=== PATIENT | male | born 1965 | race Caucasian/White ===

== ENCOUNTER 2018-04-17 10:47 | Outpatient (CLI) | payer OTHER ==
[2018-04-17] MEDS ORDERED: fentaNYL 100 MCG/2 ML INJ IVP PRN (12:05)
[2018-04-17] MEDS ORDERED: NALOXONE HCL 0.4 MG/ML INJ IVP PRN (12:05)
[2018-04-17] MEDS ORDERED: FLUMAZENIL 0.5 MG/5 ML MDV IVP PRN (12:05)
[2018-04-17] MEDS ORDERED: MEPERIDINE 25 MG/ML SYR IVP PRN (12:05)
[2018-04-17] MEDS ORDERED: MIDAZOLAM 2 MG/2 ML VIAL IVP PRN (12:05)
[2018-04-17] MEDS ORDERED: NS 1,000 ML IV SCH (12:15)
[2018-04-17] MEDS ORDERED: GADOBUTROL 10 ML VIAL IVP ONE (12:23)
--- NOTE | 2018-04-17 12:36 | PDPROPOC ---
Sedation Plan of Care Sedation Plan of Care: vital signs stable, mental status noted, patient educated of risks, benefits, alternatives, patient can tolerate sedation ASA Classification: ASA 2 Planned drugs: fentanyl, midazolam Mallampati Score: Class 1 Mallampati Reference Image: Patient passed 3-3-2 rule?: Yes
--- NOTE | 2018-04-17 12:36 | PDGENHP ---
History & Physical Chief Complaint: Essential tremor. Sedation for brain MRI. History of Present Illness: Essential tremor. Sedation for brain MRI. Pertinent Past, Social, Family History: current smoker Relevant Physical Exam: clear lungs. no wheezing or rhonchi. Cardiorespiratory Assessment: RRR
[2018-04-17] MEDS ORDERED: fentaNYL 100 MCG/2 ML INJ ONE (12:44)
[2018-04-17] MEDS ORDERED: MIDAZOLAM 2 MG/2 ML VIAL ONE (12:44)
[2018-04-17] MEDS ORDERED: ONDANSETRON 4 MG/2 ML VIAL IVP PRN (13:41)
[2018-04-17] MEDS ORDERED: ACETAMINOPHEN 325 MG TAB PO PRN (13:41)
[2018-04-17 14:54] VITALS: BP 105/69
== END 2018-04-17 14:41 | disposition home or self-care (01) ==
LOC: FIMAGING 10:47
PROVIDERS: ATTEND Neurological Surgery
PROC: B030YZZ Magnetic Resonance Imaging (MRI) of Brain using Other Contrast (ICD-10-PCS; principal; 2018-04-17 13:53)
DX: G25.0 Essential tremor (principal); J32.9 Chronic sinusitis, unspecified; F17.210 Nicotine dependence, cigarettes, uncomplicated
CPT/HCPCS: A9585; J2250; J3010

== ENCOUNTER 2018-04-24 06:01 | Inpatient (IN) | payer OTHER ==
[2018-04-24] MEDS ORDERED: LIDOCAINE 1% 2 ML INJ ID PRN (06:20)
[2018-04-24] MEDS ORDERED: LR 1,000 ML IV ONE (06:20)
[2018-04-24 07:27] LABS: INR 1.02 (0.83-1.16); PROTIME(PATIENT) 13.6 SEC (12.0-15.0)
[2018-04-24] MEDS ORDERED: THROMBIN (BOVINE) 20,000 UNIT VIAL TP ONE (07:31)
[2018-04-24] MEDS ORDERED: BUPIVACAINE 0.25% 30 ML SDV ONE (07:31)
[2018-04-24] MEDS ORDERED: GENTAMICIN SULFATE 80 MG/2 ML VIAL ONE (07:31)
[2018-04-24] MEDS ORDERED: LIDOCAINE 2% JELLY 20 ML (UROJECT) ONE (07:31)
[2018-04-24] MEDS ORDERED: POVIDONE-IODINE 30 GM OINTTUBE TP ONE (07:32)
[2018-04-24] MEDS ORDERED: EPINEPHrine 1 MG/ML INJ ONE (07:32)
[2018-04-24] MEDS ORDERED: CHLORHEXIDINE GLUC HIBICLENS 118 ML BTL TP ONE (07:34)
--- NOTE | 2018-04-24 07:47 | PDHPUP ---
History & Physical Update H&P update statement: This history and physical update is based on an assessment of the patient which was completed after admission or registration (within 24 hours), but prior to the surgery/procedure. H&P update: H&P reviewed & patient examined, no change in patient's condition since H&P completed
--- NOTE | 2018-04-24 07:47 | PDGENHP ---
History and Physical - Chief Complaint Essential Tremor - History of Present Illness Viet Dawkins is a 52 year old male with essential tremor. His neurologist is Dr. Jass Cardenas. The patient has ongoing tremors that will vary in intensity throughout the day. His tremor originally began on the right side. He now experiences whole body tremors. He admits to unsteady gait and balance difficulties, unsure if this is caused from the tremors themselves. He has also noticed some stuttering. He presents today after VARSHA scan and neuropsych eval to discuss final candidacy. He states he is ready to move forward and has had no change in his symptoms since his last visit. History Information - Allergies/Home Medication List Allergies/Adverse Reactions: No Known Allergies Allergy (Verified 04/10/18 14:51) Home Medications: Albuterol [Proventil Inhaler HFA (*)] 1 - 2 puffs IH DAILY PRN 03/19/18 [Last Taken Unknown] Primidone [Primidone 250mg (*)] 125 mg PO HS 03/19/18 [Last Taken Unknown] I have personally reviewed and updated: family history, medical history, social history, surgical history Past Medical History: Essential tremor - Surgical History Reports: no pertinent surgical hx - Social History Smoking Status: Heavy smoker Alcohol Use: Other (3-4 beers per day) Review of Systems Review of Systems: Negative except for what is mentioned in HPI Physical Exam Physical Exam: Awake. Alert. PERRL. EOMI Facial expression symmetrical Muscle strength full at 5/5 Sensation intact Mood and affect appropiate Bilateral UE tremor Temp Pulse Resp BP Pulse Ox 36.4 C 66 16 140/91 H 95 04/24/18 06:24 04/24/18 06:24 04/24/18 06:24 04/24/18 06:24 04/24/18 06:24 Lab Data & Imaging Review PT 13.6 SEC (12.0-15.0) 04/24/18 06:55 INR 1.02 (0.83-1.16) 04/24/18 06:55 APTT 28.0 SEC (23.0-38.0) 04/24/18 06:55 Assessment & Plan Assessment: 52 year old male with essential tremor Plan: Viet Dawkins is a 52 year old male with essential tremor. He had a VARSHA scan on that was normal. The VARSHA scan suggests essential tremor. He had a neuropsychological evaluation with Dr. Gallo on 11/01/17. She states that she finds no factors that would preclude the patient from undergoing DBS. I have explained that DBS can improve tremor by 60 to 90%. I discussed the risks, benefits, and alternatives to the surgical intervention including the pre and post-op expectations and the procedure for DBS in great detail. He can choose to move forward with unilateral VIM implant or bilateral VIM implant. I have explained that bilateral VIM implant can result in slurred speech and/or balance difficulties however this can be controlled with programming. Programming would be done by Dr. Jass Cardenas. We have discussed the different devices on the market. He would like to use [employer]. The patient elected to move forward with surgery. We will begin with LT VIM implant for RT body and then RT VIM implant for LT body second. Consents signed and all questions/concerns addressed and answered.
--- NOTE | 2018-04-24 08:08 | PDANEPAE ---
ANE Past Medical History - Cardiovascular History Hx Hypertension: No Hx Arrhythmias: No Hx Chest Pain: No Hx Coronary Artery / Peripheral Vascular Disease: No Hx CHF / Valvular Disease: No Hx Palpitations: No Cardiovascular History Comment: Chest pains about 9 years ago. Went to ER in [facility] and was determined to be stress. - Pulmonary History Hx COPD: No Hx Asthma/Reactive Airway Disease: No Hx Recent Upper Respiratory Infection: No Hx Oxygen in Use at Home: No Hx Sleep Apnea: No Sleep Apnea Screening Result - Last Documented: Negative Pulmonary History Comment: Reports lung infection in December 2017 "from all the smoke in the air". Saw PCP and started on course of Augmentin and a PRN MDI. - Neurologic History Hx Cerebrovascular Accident: No Hx Seizures: No Hx Dementia: No Neurologic History Comment: Occasional tremors - Endocrine History Hx Diabetes: No - Renal History Hx Renal Disorders: No - Liver History Hx Hepatic Disorders: No - Neurological & Psychiatric Hx Hx Neurological and Psychiatric Disorders: Yes - Cancer History Hx Cancer: No - Congenital Disorder History Hx Congenital Disorders: No - GI History Hx Gastrointestinal Disorders: No - Other Health History Other Health History: glasses for reading - Chronic Pain History Chronic Pain: No - Surgical History Prior Surgeries: Tonsillectomy (8 years old). Cyst removal from neck-2017 ANE Review of Systems Review of Systems: - Exercise capacity METS (RN): 4 METS ANE Patient History - Allergies Allergies/Adverse Reactions: No Known Allergies Allergy (Verified 04/10/18 14:51) - Home Medications Home Medications: Albuterol [Proventil Inhaler HFA (*)] 1 - 2 puffs IH DAILY PRN 03/19/18 [Last Taken Unknown] Primidone [Primidone 250mg (*)] 125 mg PO HS 03/19/18 [Last Taken Unknown] - NPO status NPO Since - Liquids (Date): 04/23/18 NPO Since - Solids (Date): 04/23/18 - Smoking Hx Smoking Status: Heavy smoker - Alcohol Use Alcohol Use: Other (3-4 beers per day) - Family Anes Hx Family Hx Anesthesia Complications: None ANE Labs/Vital Signs - Vital Signs Blood Pressure: 140/91 Heart Rate: 66 Respiratory Rate: 16 O2 Sat (%): 95 Height: 180.34 cm Weight: 72.575 kg ANE Physical Exam - Airway Neck exam: decreased ROM Mallampati Score: Class 2 Mouth exam: poor dentition - Pulmonary Pulmonary: no respiratory distress - Cardiovascular Cardiovascular: regular rate and rhythym - ASA Status ASA Status: III ANE Anesthesia Plan Lines/Monitors: arterial line Total IV Anesthesia: Yes
[2018-04-24] MEDS ORDERED: fentaNYL 100 MCG/2 ML INJ ONE ×2 (08:20→11:24)
[2018-04-24] MEDS ORDERED: D5W IV ONE (08:30)
[2018-04-24] MEDS ORDERED: NICARDIPINE IV ONE (08:30)
[2018-04-24] MEDS ORDERED: DEXMEDETOMIDINE HCL 200 MCG in NS 50 ML IV ONE (08:30)
[2018-04-24] MEDS ORDERED: CEFUROXIME 1,500 MG in NS 50 ML IV ONE (09:00)
[2018-04-24] MEDS ORDERED: ONDANSETRON 4 MG/2 ML VIAL IVP PRN ×2 (10:27→12:34)
[2018-04-24] MEDS ORDERED: fentaNYL 100 MCG/2 ML INJ IVP PRN (10:27)
[2018-04-24] MEDS ORDERED: LABETALOL HCL 5 MG/ML 20 ML MDV IVP PRN (10:27)
[2018-04-24] MEDS ORDERED: ACETAMINOPHEN 500 MG TAB PO PRN (10:27)
[2018-04-24] MEDS ORDERED: ALBUTEROL 3 ML DEYVIAL IH PRN (10:27)
[2018-04-24] MEDS ORDERED: NALOXONE HCL 0.4 MG/ML INJ IVP PRN (10:27)
[2018-04-24] MEDS ORDERED: LABETALOL HCL 5 MG/ML 20 ML MDV ONE (11:48)
--- NOTE | 2018-04-24 12:07 | POSTANESTH ---
Post Anesthetic Evaluation Cardiovascular Status: Normal, Stable Respiratory Status: Similar to Pre-op Cond. Level of Consciousness/Mental Status: Alert and Oriented Pain Control: Adequate, Prn Tx Ordered Nausea/Vomiting Control: Adequate, Prn Tx Ordered Complications Possibly Related to Anesthesia: None Noted
[2018-04-24] MEDS ORDERED: POLYETHYLENE GLYCOL 3350 17 GM PKT PO PRN (12:34)
[2018-04-24] MEDS ORDERED: MAGNESIUM HYDROXIDE 30 ML UDCUP PO PRN (12:34)
[2018-04-24] MEDS ORDERED: LACTULOSE 20 GM/30 ML UDCUP PO PRN (12:34)
[2018-04-24] MEDS ORDERED: HYDROCODONE/APAP 10/325 TAB PO PRN (12:34)
[2018-04-24] MEDS ORDERED: BISACODYL 10 MG SUPP PR PRN (12:34)
[2018-04-24] MEDS ORDERED: ALBUTEROL 60 PUFFS/8 GM MDI IH PRN (12:37)
[2018-04-24] MEDS ORDERED: hydrALAZINE 20 MG/ML VIAL IVP PRN (12:37)
--- NOTE | 2018-04-24 12:40 | POSTOPPROG ---
Post Op Note Date of Operation: 04/24/18 Surgeon: Tejal Garcia Nitrate Operator: Shirley Stephens PA-C Anesthesia: IV Sedation Pre-op Diagnosis: Essential tremor Post-op Diagnosis: Essential tremor Procedure: Left VIM DBS lead placement Inf/Abcess present in the surg proc area at time of surgery?: No Depth: Superfical (Skin SQ) EBL: Minimal Plan Plan: 52 yo male s/p left VIM DBS lead placement for essential tremor - neuro checks - postop head CT pending - maintain SBP < 140 - pain control - to floor if head CT stable - plan for discharge tomorrow Exam Awake. Alert. PERRL. EOMI Following commands Muscle strength full at 5/5 Sensation intact
[2018-04-24] MEDS ORDERED: NS W/ 20 KCl/L 1,000 ML IV SCH (12:45)
--- NOTE | 2018-04-24 13:16 | GOP ---
DATE OF ADMISSION: 04/24/2018 PREOPERATIVE DIAGNOSIS: Essential tremor. POSTOPERATIVE DIAGNOSIS: Essential tremor. PROCEDURE: 1. Placement of left deep brain stimulator, lead placement to VIM nucleus of the thalamus. 2. Stealth stereotaxis. 3. Impedances. NEUROSURGEON: Tejal Garcia D.O. UTILITY AIDE: None. PRESTON: Shirley Stephens PA-C. Please refer to her dictation for all PRESTON notes. EBL: 25 mL. FLUIDS: 650 mL crystalloid. URINE OUTPUT: Not recorded. DRAINS: None. SPECIMENS: None. COMPLICATIONS: None. INDICATIONS: This is a 52-year-old male with essential tremor who was found to be a good candidate f or deep brain stimulation to VIM nucleus of the thalamus. He was identified, consented, sites were m arked. Brought to the operating room and anesthetized under local. Hair was clipped with the OR cli ppers. The skin was cleansed with chlorhexidine. Placed the Leksell frame using 0.25% Marcaine with epinephrine in a stereotactic fashion with povidone iodine ointment on the pin sites. Once the fram e was performed, we placed a localizer box, performed an O-arm spin and merged it with a p reoperative MRI plan in the [employer] Frame [employer] software. The ACPC distance was 25.7. The initial X was an X of 13.23, Y of -6.54, and Z of 0.21. The entry point of an X of 38.17, Y of 37.79, and Z o f 57.62. This corresponded to 23.5 degrees off midsagittal, 52.3 degrees off midaxial. This corresp onded to Leksell frame coordinates of an X of 117, Y of 95.5, a Z of 101.5, a ring of 57 degrees, and an arc of 108.1 degrees. He was prepped and draped in the usual sterile fashion. These settings we re all set and triple checked by all providers in the room. The incision site was marked using the c annula Leksell frame coordinates. A half-hardy incision was anesthetized with 0.25% Marcaine with epi nephrine. Incision was made with a 10 blade. Hemostasis was obtained with bipolar cautery and Raghu clips. Elevated periosteum with a periosteal elevator. Marked the bone incision, drilled a balloon pilot h ole, then a 14 mm bur hole. Waxed the edges, verified the bur hole was in the appropriate position. Locked down the Guardian locking cap with 5 mm Synthes screws. Verified the clipping mechanism, cli pped and locked sharply. Opened the dura with an 11 blade. Hemostasis was obtained with bipolar cau yamil. Inserted a cannula and locked into place. Plugged the hole with Gel-Foam and DuraSeal. Place d the microelectrode recording, performed microelectrode recordings, got excellent run. Getting in a pproximately 7.5 mm above target, and out approximately 3 mm below with deep and light sensation in t he appropriate positions and motor driving. However, we macro stemmed and got some capsular effect. Elected to run a track 2 mm medial, drove back up to target, removed the Gel-Foam and DuraSeal. Abdulaziz joan a cannula at the 2 mm medial Daniel-Gun position, removed the stylet. Placed the microelectrode lis tening just to this. We again got good recordings all the way down. Macro stemmed and got excellent tremor control with low to no side effects. Elected to place the lead here with the bottom of the b ottom contact approximately 1 below target, according to our PRESTON. Again, please refer to Shirley redman PA-C, PRESTON's dictation for all PRESTON details. We then tested the lead and got excellent tremor co ntrol. No side effects at every contact. This is a very programmable lead. Took an x-ray with the lead in appropriate position. Performed O-arm spin and merged it. We were exactly where we expected to be, approximately 2 mm medial to the original plan, which would then correspond to an X of 11.23 for target. We then removed the Gel-Foam and DuraSeal, retracted the cannulas, placed the Guardian, clipped and locked it, removed the stylet. Brought the lead down and out, placed in the _ cap, took an x-ray verified it had not migrated. We then placed the lead extension cap ove r it, locked into place with a torque wrench, tunneled it posteriorly under the periosteum, coiled th e lead posterior and around the incision. Took another x-ray with the bomb sites in place. It had n ot migrated. Copiously irrigated with over a liter of gentamicin-infused saline. Closed the galea w ith 2-0 Vicryl pop-offs. The skin was closed with 3-0 running nylon. The wound was dressed with Xer oform and a Telfa stapled down. The frame was removed. The head was dressed with gauze. The patien t tolerated the procedure well. No complications. /[id number]/MODL
--- NOTE | 2018-04-24 13:26 | GPN ---
DATE OF PROCEDURE: 04/24/2018 PREPROCEDURE DIAGNOSIS: Essential tremor. POSTPROCEDURE DIAGNOSIS: Essential tremor. PROCEDURE PERFORMED: Intraoperative functional subcortical mapping by microelectrode recording and s timulation. COMPLICATIONS: None. INDICATIONS FOR PROCEDURE: Determination of optimal electrode lead placement for deep brain stimulat ion therapy for essential tremor to the DARIUS. DESCRIPTION OF PROCEDURE: Following the incision on the left, upper hole was drilled. The arc was t hen arranged with the following coordinates X 117, Y 95.5, Z 101.5, ring 57, arc 108.1. The recordin g microelectrode was then slowly advanced into the brain using a central tract. We had several evide nce of cell bursts at 9 above target. There was change in stimulation with passive range of motion o f the shoulder at 7.4 above target, possible change in stimulation with deep touch at the shoulder at 4.1 above target, change with light touch in the mouth at 1.8 above target. We exited at 0.3 below target. We then proceeded with macro stimulation at 4 above target. At 2.5, the patient experienced tingling in his right upper and right lower extremities as well as facial while pulling and speech d ifficulty. Due to the side effects of pain with macro stimulation, we proceeded with moving the micr oelectrode lead medially and did another recording. With this recording, there was evidence of kim e in stimulation with passive range of motion with elbow flexion at 3.5 above target. We exited DARIUS at 0.8 below target. We then proceeded with macro stimulation at 3.5 above target. The patient had improved tremor and had side effects of tingling in his right hand at 3.5. We then placed the lead a nd proceeded with more test stimulation. At 1-, 2+, impedance 1800, patient had improved tremor with tingling in the right hand at 1.8. At 2-, 3+, impedance 1743 patient had no side effects up to 2.5 with improved tremor at 3-, 4+, patient had no side effects up to 3.0 and improved tremor at 4-, 3+, impedance at 1925, patient had no side effects up to 2.3 and had improved tremor with no side effects . With these recordings and test stimulation obtained, we elected to place the lead in this location with the bottom of the lead at 1 below target. The patient tolerated the surgery well without any c omplications and was transferred to the floor for further observation of pain control. /[id number]/MODL
[2018-04-24] MEDS: ACETAMINOPHEN 325 MG TAB PO PRN ×2 (15:58→20:13)
[2018-04-24] MEDS: CEFUROXIME 1,500 MG in NS 50 ML IV SCH (18:19)
[2018-04-24] MEDS: SENNOSIDES/DOCUSATE SODIUM TAB PO SCH (20:13)
[2018-04-24] MEDS ORDERED: PRIMIDONE 250 MG TAB PO SCH (21:00)
--- NOTE | 2018-04-24 22:26 | PDMN ---
Medical Necessity Medical necessity: Pt meets inpt criteria per MD order and Neurosurgery or Procedure [place], CPT 75319, m'care inpt only list, AUTH# [id number], approved 1 day inpt. 52 y/o w/essential tremor admitted for intraoperative functional subcortical mapping by microelectrode recording and stimulation.
[2018-04-25] MEDS: CEFUROXIME 1,500 MG in NS 50 ML IV SCH (01:55)
--- NOTE | 2018-04-25 07:22 | NEUSURGPN ---
Assessment/Plan: 52 yo male s/p left VIM DBS lead placement for essential tremor - neuro checks - maintain SBP < 140 - pain control - Dispo planning - change dressing prior to d/c Subjective: Denies any headaches, nausea, dizziness Objective: Exam Awake. Alert. PERRL. EOMI Following commands Muscle strength full at 5/5 Sensation intact Dressing with mild serosanguineous staining - Physician Discussed Patient with : Radha Neurosurgery Physical Exam - Vitals, I&O, Labs I and O 04/24/18 04/25/18 04/26/18 05:59 05:59 05:59 Intake Total 925 Output Total 75 Balance 850 Weight 72.575 kg Intake: Oral (ml) 225 IV Intake (ml) 650 IV Infused (ml) 50 Cefuroxime 1,500 mg In Ns 50 50 ml @ 200 mls/hr IV Q8H [facility] Rx#:[id number] Output: Urine (ml) 50 Urinal 50 Estimated Blood Loss (ml) 25 Other: Number of Voids Toilet 2 Urinal 1 Vital Signs Temp Pulse Resp BP Pulse Ox 37.3 C 82 12 122/82 H 94 04/25/18 03:33 04/25/18 03:33 04/25/18 03:33 04/25/18 03:33 04/25/18 03:33 ICD10 Worksheet Patient Problems: Problems Problem Status Onset Essential tremor Acute - ICD10 Problem Qualifiers (1) Essential tremor
[2018-04-25 07:47] VITALS: BP 125/76
[2018-04-25] MEDS: SENNOSIDES/DOCUSATE SODIUM TAB PO SCH (08:44)
[2018-04-25] MEDS: ACETAMINOPHEN 325 MG TAB PO PRN (08:45)
--- NOTE | 2018-04-25 09:52 | ASMTLACE ---
TIBURCIO Length of stay for Answers: 1 day current admission Acuity / Level of Answers: Yes Care: Did the patient have an inpatient admission? Comorbidities - select Answers: Other Notes: Essential temor, tobacc o all that apply use # of Emergency department Answers: 0 visits in the last 6 months Score: 5 Date Signed: 04/25/2018 09:51 AM Electronically Signed By:Shaneka Gilbert
--- NOTE | 2018-04-25 09:56 | ASDISCHSUM ---
Discharge Information Plan Status:Home with No Needs Medically Cleared to Leave:04/25/2018 Discharge Date:04/25/2018 CM D/C Disposition:Home, Routine, Self-Care ADT D/C Disposition:Home, Routine, Self-Care Projected Discharge Date:04/25/2018 Transportation at D/C:Family Discharge Delay Reason: Follow-Up Date:04/25/2018 Discharge Slot: Final Diagnosis:Lead placement for essential tremor Placement Information Patient Contact Information Contact Name:MARIAN Relationship: Address:[address] Work Phone: City:[place] Alternate Phone: [facility]/Zip Code:[place] [address] Email: Financial Information Financial Class:Home Delivery Service (HDS)[employer]ura [employer] Primary Plan Desc:ERIKA RODRIGUEZ [facility] Primary Plan Number:[id number] Secondary Plan Desc: Secondary Plan Number: Assessment Information LACE LACE Length of stay for Answers: 1 day current admission Acuity / Level of Answers: Yes Care: Did the patient have an inpatient admission? Comorbidities - select Answers: Other Notes: Essential temor, tobjose o all that apply use # of Emergency department Answers: 0 visits in the last 6 months Score: 5 Date Signed: 04/25/2018 09:51 AM Electronically Signed By:Shaneka Gilbert Case Management Discharge Plan Note Case Management Discharge Discharge Order Complete? Answers: Yes Patient to Obtain Answers: via Family Medications Transportation Arranged Answers: Family/Friends Transport will Pick (Date 04/25/2018 12:00 AM & Time) Family Notified Answers: Yes Notes: in room Discharge Comments Notes: Spoke with pt, RN and in the room. Pt admitted for scheduled surgical supervisor placement for essential tremor. Pt is steady on his feet in the room and plans to discharge home independently with . No therapies ordered. Pt and comfortable with this scenario. No CM needs noted at this time. Date Signed: 04/25/2018 09:55 AM Electronically Signed By:Shaneka Gilbert Intervention Information
[2018-04-27] MEDS ORDERED: ENOXAPARIN 40 MG/0.4 ML SYR SC SCH (09:00)
== END 2018-04-25 10:16 | disposition home or self-care (01) | DRG 27 ==
LOC: F3N 06:01 → EDSTATUS 07:15 → F3N 14:29
PROVIDERS: ADMIT Neurological Surgery; ATTEND Neurological Surgery
PROC: 00H00MZ Insertion of Neurostimulator Lead into Brain, Open Approach (ICD-10-PCS; principal; 2018-04-24 08:30)
DX: G25.0 Essential tremor (principal); Z72.0 Tobacco use; Z23 Encounter for immunization
CPT/HCPCS: C1713; C1778; G0008; J0171; J0697; J1580; J3010

== ENCOUNTER 2018-05-17 05:34 | Inpatient (IN) | payer OTHER ==
[2018-05-17] MEDS ORDERED: CEFUROXIME 1,500 MG in NS 50 ML IV ONE (06:00)
--- NOTE | 2018-05-17 06:02 | POSTANESTH ---
Post Anesthetic Evaluation Cardiovascular Status: Normal, Stable Respiratory Status: Normal, Stable Level of Consciousness/Mental Status: Can Participate in Eval, Mildly Sleepy, Arousable Pain Control: Adequate, Prn Tx Ordered Nausea/Vomiting Control: Adequate, Prn Tx Ordered Complications Possibly Related to Anesthesia: None Noted
--- NOTE | 2018-05-17 06:04 | PDANEPAE ---
ANE History of Present Illness 52 yo male with essential tremor s/p stage I L-sided stim lead placement returns for stage II (R-sided) DBS lead placement. ANE Past Medical History - Cardiovascular History Hx Hypertension: No Hx Arrhythmias: No Hx Chest Pain: No Hx Coronary Artery / Peripheral Vascular Disease: No Hx CHF / Valvular Disease: No Hx Palpitations: No Cardiovascular History Comment: Chest pains about 9 years ago. Went to ER in [facility] and was determined to be stress. - Pulmonary History Hx COPD: No Hx Asthma/Reactive Airway Disease: No Hx Recent Upper Respiratory Infection: No Hx Oxygen in Use at Home: No Hx Sleep Apnea: No Sleep Apnea Screening Result - Last Documented: Negative Pulmonary History Comment: Reports lung infection in December 2017 "from all the smoke in the air". Saw PCP and started on course of Augmentin and a PRN MDI. - Neurologic History Hx Cerebrovascular Accident: No Hx Seizures: No Hx Dementia: No Neurologic History Comment: Occasional tremors - Endocrine History Hx Diabetes: No Hypothyroid: No Hyperthyroid: No Obesity: no - Renal History Hx Renal Disorders: No - Liver History Hx Hepatic Disorders: No - Neurological & Psychiatric Hx Hx Neurological and Psychiatric Disorders: Yes - Cancer History Hx Cancer: No - Congenital Disorder History Hx Congenital Disorders: No - GI History Hx Gastrointestinal Disorders: No - Other Health History Other Health History: glasses for reading - Chronic Pain History Chronic Pain: No - Surgical History Prior Surgeries: Tonsillectomy (8 years old). Cyst removal from neck-2017 ANE Review of Systems Review of Systems: - Exercise capacity METS (RN): 4 METS - Systems Cardiac: Reports: no symptoms Respiratory: Reports: no symptoms Neurological: Reports: tremors ANE Patient History - Allergies Allergies/Adverse Reactions: No Known Allergies Allergy (Verified 04/29/18 11:06) - Home Medications Home Medications: Albuterol [Proventil Inhaler HFA (*)] 1 - 2 puffs IH DAILY PRN 03/19/18 [Last Taken 3 Weeks Ago ~04/26/18] Primidone [Primidone 250mg (*)] 125 mg PO HS 03/19/18 [Last Taken 05/15/18] - NPO status NPO Status: no food or drink >8 hours - Anes Hx Anes Hx: no prior problems Hx Anesthesia Complications (with details): Pt was more awake than he would like during early part of last DBS placement. - Smoking Hx Smoking Status: Heavy smoker Marijuana use: No - Alcohol Use Alcohol Use: Occasionally (8/week) - Family Anes Hx Family Anes Hx: neg - N/A Family Hx Anesthesia Complications: None ANE Labs/Vital Signs - Vital Signs Vital Signs: reviewed preoperatively; see RN documention for details Height: 180.34 cm Weight: 72.575 kg ANE Physical Exam - Airway Mallampati Score: Class 1 Mouth exam: poor dentition - Pulmonary Pulmonary: clear to auscultation (coarse) - Cardiovascular Cardiovascular: regular rate and rhythym - ASA Status ASA Status: III ANE Anesthesia Plan Anesthesia Plan: MAC (with IVS for approach) Lines/Monitors: arterial line
[2018-05-17] MEDS ORDERED: LR 1,000 ML IV ONE (06:29)
[2018-05-17] MEDS ORDERED: THROMBIN (BOVINE) 20,000 UNIT VIAL TP ONE (06:55)
[2018-05-17] MEDS ORDERED: CHLORHEXIDINE GLUC HIBICLENS 118 ML BTL TP ONE (06:55)
[2018-05-17] MEDS ORDERED: BUPIVACAINE 0.25% 30 ML SDV ONE (06:55)
[2018-05-17] MEDS ORDERED: GENTAMICIN SULFATE 80 MG/2 ML VIAL ONE (06:56)
[2018-05-17] MEDS ORDERED: LIDOCAINE 2% JELLY 20 ML (UROJECT) ONE (06:56)
[2018-05-17] MEDS ORDERED: DEXMEDETOMIDINE HCL 400 MCG in NS 100 ML IV SCH (07:00)
[2018-05-17] MEDS ORDERED: niCARdipine/NACL 200 ML IV SCH (07:00)
[2018-05-17] MEDS ORDERED: fentaNYL 100 MCG/2 ML INJ ONE (07:03)
[2018-05-17] MEDS ORDERED: PROPOFOL/EMULSION 500 MG/50 ML BOTTLE IV ONE (07:03)
[2018-05-17] MEDS ORDERED: EPINEPHrine 1 MG/ML INJ ONE (07:24)
[2018-05-17] MEDS ORDERED: LR 500 ML IV PRN (10:21)
[2018-05-17] MEDS ORDERED: HYDROCODONE/APAP 5/325 TAB PO PRN (10:21)
[2018-05-17] MEDS ORDERED: fentaNYL 100 MCG/2 ML INJ IVP PRN (10:21)
[2018-05-17] MEDS ORDERED: NALOXONE HCL 0.4 MG/ML INJ IVP PRN (10:21)
[2018-05-17] MEDS ORDERED: ALBUTEROL 3 ML DEYVIAL IH PRN (10:21)
[2018-05-17] MEDS ORDERED: ONDANSETRON 4 MG/2 ML VIAL IVP PRN ×2 (10:21→10:45)
[2018-05-17] MEDS ORDERED: ACETAMINOPHEN 500 MG TAB PO PRN (10:21)
[2018-05-17] MEDS ORDERED: ALBUTEROL 60 PUFFS/8 GM MDI IH PRN (10:44)
[2018-05-17] MEDS ORDERED: ACETAMINOPHEN 325 MG TAB PO PRN (10:45)
[2018-05-17] MEDS ORDERED: NS W/ 20 KCl/L 1,000 ML IV SCH (10:45)
[2018-05-17] MEDS ORDERED: MAGNESIUM HYDROXIDE 30 ML UDCUP PO PRN (10:45)
[2018-05-17] MEDS ORDERED: BISACODYL 10 MG SUPP PR PRN (10:45)
[2018-05-17] MEDS ORDERED: LACTULOSE 20 GM/30 ML UDCUP PO PRN (10:45)
[2018-05-17] MEDS ORDERED: POLYETHYLENE GLYCOL 3350 17 GM PKT PO PRN (10:45)
[2018-05-17] MEDS ORDERED: HYDROmorphONE/DILAUDID 1 MG/ML INJ IVP PRN (10:45)
[2018-05-17] MEDS ORDERED: hydrALAZINE 20 MG/ML VIAL IVP PRN (10:47)
--- NOTE | 2018-05-17 10:51 | POSTOPPROG ---
Post Op Note Date of Operation: 05/17/18 Surgeon: Tejal Garcia Relay Repairer: Shirley Stephens PA-C Anesthesiologist: Dr. Sutherland Anesthesia: IV Sedation, Local (Specify) Pre-op Diagnosis: Essential tremor Post-op Diagnosis: Essential tremor Procedure: Right VIM DBS lead placement Inf/Abcess present in the surg proc area at time of surgery?: No Depth: Deep Incisional (Fascial) EBL: Minimal Plan Plan: 52 yo male s/p right VIM DBS lead placement for essential tremor - neuro checks - pain control - maintain SBP < 140 - postop head CT pending - if head CT stable then transfer to the floor - home tomorrow Exam Awake. Alert Following commands Strength full Incision with dressing c/d/i
--- NOTE | 2018-05-17 11:23 | GOP ---
DATE OF OPERATION: 05/17/2018 SURGEON: Tejal Garcia DO NEUROSURGEON: Tejal Garcia DO ROLLER STAINER: Shirley Stephens PA-C. PREOPERATIVE DIAGNOSIS: Essential tremor. POSTOPERATIVE DIAGNOSIS: Essential tremor. PROCEDURE PERFORMED: 1. Right ventralis intermedius nucleus deep brain stimulator lead placement with Land/[employer]wn zhou d. 2. Impedances. FINDINGS: SPECIMENS: None. ESTIMATED BLOOD LOSS: 20 mL. INDICATIONS: This is a 52-year-old male with essential tremor, who was found to be a good candidate with multidisciplinary evaluation for DBS. He elected to move forward with deep brain stimulator zhou d placement with Land/[employer]hawn and had the left lead placed approximately 1 month ago. He returns for the right-sided lead. DESCRIPTION OF PROCEDURE: He was identified, consented, sites were marked, brought to the operating room, anesthetized under local. Hair was clipped with the OR clippers. Skin was cleansed with Chlor aPrep. Anesthetized the pin sites with 0.25% Marcaine with epinephrine using povidone iodine ointmen t on the pin to place a [place] frame stereotactically. We then performed a stereotactic spin with t he Stealth box in place and merged it to the preoperative plan in the [employer] software. We mirrored the other side as he got excellent electrodes and planned to do a center and a lateral t ract. His ACPC distance was 25.35. His center target was X of 11.06, Y of -6.35, Z of 0.00. Entry point X of 42.73, Y of 41.27, Z of 54.64. This corresponded to 30.1 degrees off midsagittal, 48.9 de grees off midaxial. He had significantly complex cortical anatomy for this tract. This corresponded to [place] frame coordinates of an X of 94, a Y of 94.5, a Z of 92 degrees, a ring of 55 degrees, an arc of 63.9 degrees. These were all set and triple checked by all providers in the room. He was pr epped and draped in the usual sterile fashion, and the site was marked using Le[place]ell frame coordinate s. A half-hardy incision was anesthetized with 0.25% Marcaine with epinephrine. An incision was made with a 10 blade. Periosteum was elevated with periosteal elevator. Raghu clips were used for hemos tasis. We marked the bone opening, then created a towing pilot hole, and then a 14 mm nimo hole. The bone edges were waxed. We verified the nimo hole to be in appropriate position, locked down the Guardian locking mechanism and 5 mm screws, verified that the clip clipped and locked, opened the dura sharply with an 11 blade. There was a dural cortical vessel that required coagulation. Once meticulous hem ostasis had been obtained, we placed the center in the lateral cannulas, plugged the hole with Gelfoa m and DuraSeal, and placed the microelectrodes and performed microelectrode recordings. Exactly sharonda lar to the other side, we got a much better run on the lateral electrode, although we got motor drivi ng and deep on both. We macrostimed the lateral and had too many lateral side effects. We macrostim ed to the medial and had excellent control with little to no side effects. Elected to test the lead here, placed in the bottom and the bottom contacted 0.5 below target, where we got out of the IM. We measured and placed the lead and tested the lead at all 4 contacts, got excellent tremor control and no side effects. We took an x-ray with the bomb sites in place, performed a stereotactic spin [facility], and then retracted the cannula into and placed the Guardian and locking mechanism , marked the lead, took an x-ray, verified it had not migrated, brought the lead down and out after r emoving the stylet, placed it into the groove, placed the cap, took another x-ray. It had not migrat ed. Placed the lead extension cap on to the lead and locked it into place, placed it posterior and c oiled the lead posterior and around the incision. Took a final x-ray. It had not migrated. Copious ly irrigated with over a liter of gentamicin-infused saline. Closed the galea with 2-0 Vicryl pop-of fs, skin with a 3-0 running nylon. Wound was dressed with Xeroform, Telfa. Head was wrapped. Zachariah brewster was removed from the [place] cotton header, tolerated the procedure well. There were no complicati ons. FLUIDS: 800 mL crystalloid. URINE OUTPUT: Not recorded. DRAINS: None. COMPLICATIONS: None. Please refer to dictation by Shirley Stephens PA-C for all PRESTON. /[id number]/MODL
--- NOTE | 2018-05-17 13:14 | GPN ---
DATE OF PROCEDURE: 05/17/2018 PREPROCEDURE DIAGNOSIS: Essential tremor. POSTPROCEDURE DIAGNOSIS: Essential tremor. PROCEDURE PERFORMED: Intraoperative functional subcortical mapping by microelectrode recording and stimulation. COMPLICATIONS: None. INDICATIONS FOR PROCEDURE: Determination of optimal electrode lead placement for deep brain stimulation therapy for essential tremor to be VIM. PROCEDURE: Following the incision on the right, a nimo hole was drilled. The arc was then arranged with the following coordinates: X 94, Y 94.5, V 92, arc 63.9, ring 55. The recording microelectrode was then slowly advanced into the brain using a central and lateral tract. There was evidence of cell bursts multiple times above target. There was change in stimulation with elbow flexion at 8.6 above target in both the lateral and center tract. In the lateral tract, there was change in stimulation with deep touch to the forearm at 2.1 above target and evidence of exiting VIM at 0.5 below target. We then proceeded with macro stimulation of the lateral tract. At 1.5, patient had transient left hand tingling. At 3.0, he had more consistent left hand tingling as well as facial twitching and speech difficulties. Due to these side effects, we then proceeded with macro stimulation of the center tract. Patient had transient left hand tingling at 3.5 amplitude with improved tremor. With this recording and macro stimulation, we elected to place the lead in this location at the center tract with the lead at 0.5 below target. We then proceeded with test stimulation with pulse width 60, rate 130. At 1 negative, 2 positive impedance 2143, patient had transient left hand tingling up to 1.8 amplitude. At 2 negative, 3 positive impedance 2143, patient had no side effects with improved tremor up to 2.0. At 3 negative, 4 positive impedance 2065, patient had no side effects up to 2.0 with improved tremor. At 4 negative , 3 positive impedance 1638, patient had no side effects up to 2.0. With these recordings and test stimulation obtained, we elected to place the lead in this location with the bottom of the lead at 0.5 below target using the center tract. The patient tolerated the surgery well without any complications and was transferred to the floor for further pain control and neurological checks. /[id number]/MODL MTDD
--- NOTE | 2018-05-17 13:50 | PDMN ---
Medical Necessity Medical necessity: Pt meets inpt criteria per MD order and Neurosurgery or Procedure GRG, Intraoperative functional subcortical mapping by microelectrode recording and stimulation, Medicare inpt only surg list. Pt admitted for above procedure in treatment of essential tremor.
[2018-05-17] MEDS ORDERED: ACETAMINOPHEN 325 MG TAB ONE (13:58)
[2018-05-17] MEDS: CEFUROXIME 1,500 MG in NS 50 ML IV SCH ×2 (15:27→22:32)
--- NOTE | 2018-05-17 15:56 | ASMTCMCOM ---
CM Note CM Note Notes: Pt is a 52 y/o man admitted for an essential tremor. Needs are TBD at this time. No therapies ordered. CM to follow. Plan: TBD Date Signed: 05/17/2018 03:55 PM Electronically Signed By:ELLY Bradford
[2018-05-17] MEDS: HYDROCODONE/APAP 5/325 TAB PO PRN (17:30)
[2018-05-17] MEDS ORDERED: PRIMIDONE 250 MG TAB PO SCH (21:00)
[2018-05-17] MEDS: SENNOSIDES/DOCUSATE SODIUM TAB PO SCH (22:28)
[2018-05-18] MEDS: HYDROCODONE/APAP 5/325 TAB PO PRN ×2 (00:07→07:47)
[2018-05-18] MEDS: CEFUROXIME 1,500 MG in NS 50 ML IV SCH (00:08)
[2018-05-18 07:38] VITALS: BP 142/84
[2018-05-18] MEDS: SENNOSIDES/DOCUSATE SODIUM TAB PO SCH (07:48)
--- NOTE | 2018-05-18 11:11 | NEUSURGPN ---
Date of Surgery: 05/17/18 Post Op Day: 1 Assessment/Plan: 52 yo male s/p right VIM DBS lead placement for essential tremor POD#1 - doing well, will dc home today - pain well controlled, patient has pain medication at home - postop head CT shows lead placement Discussed with Dr Garcia Please call with any questions/concerns Subjective: Doing well, denies headache Objective: PERRLA EOMI CN 2-12 grossly intact 5/5 BUE,BLE Dressing CDI Neuro Check Frequency: per routine Urinary Catheter in Place: No - Physician Discussed Patient with : Radha Neurosurgery Physical Exam - Vitals, I&O, Labs I and O 05/17/18 05/18/18 05/19/18 05:59 05:59 05:59 Intake Total 2125 Output Total 470 Balance 1655 Weight 72.575 kg Intake: Oral (ml) 1270 IV Intake (ml) 800 IV Infused (ml) 55 Cefuroxime 1,500 mg In Ns 55 50 ml @ 200 mls/hr IV Q8H [facility] Rx#:[id number] Output: Urine (ml) 450 Catheter 450 Estimated Blood Loss (ml) 20 Other: Intake Quantity Yes Sufficient Number of Voids Toilet 1 Vital Signs Temp Pulse Resp BP Pulse Ox 37.1 C 91 16 142/84 H 93 05/18/18 07:37 05/18/18 07:37 05/18/18 07:37 05/18/18 07:37 05/18/18 07:37 ICD10 Worksheet Patient Problems: Problems Problem Status Onset Essential tremor Acute
--- NOTE | 2018-05-22 13:37 | GDS ---
ADMITTING DIAGNOSIS: Essential tremor. DISCHARGE DIAGNOSIS: Essential tremor. PROCEDURE: Right VIM DBS lead placement for essential tremor. HOSPITAL COURSE: The patient is a 52-year-old male who presented to the hospital to proceed with deep brain stimulation with placement of a lead at the right VIM for essential tremor on May 17, 2018. The patient underwent the surgery without complication by Dr. Tejal Garcia. Postoperative head CT demonstrated pneumocephalus without evidence of intracranial hemorrhage. He was transferred to the floor for further observation and neurological checks. On the following day, he was tolerating a diet, voiding without difficulty, pain controlled, and he was medically stable and thus he was deemed suitable for discharge. DISPOSITION: He was discharged to home on May 18, 2018. FOLLOWUP: The patient is to follow up with Dr. Tejal Garcia in 2 weeks for suture removal and wound check. /[id number]/MODL MTDD
== END 2018-05-18 11:32 | disposition home or self-care (01) | DRG 27 ==
LOC: F3E 05:34 → EDSTATUS 07:15 → F3N 14:48
PROVIDERS: ADMIT Neurological Surgery; ATTEND Neurological Surgery
PROC: 00H00MZ Insertion of Neurostimulator Lead into Brain, Open Approach (ICD-10-PCS; principal; 2018-05-17 07:15)
DX: G25.0 Essential tremor (principal)
CPT/HCPCS: C1713; C1778; J0171; J0697; J1580; J2704; J3010

== ENCOUNTER 2018-06-05 07:16 | Day surgery (SDC) | payer OTHER ==
[2018-06-05] MEDS ORDERED: CHLORHEXIDINE GLUC HIBICLENS 118 ML BTL TP ONE ×2 (07:21→10:04)
[2018-06-05] MEDS ORDERED: EPINEPHrine 1 MG/ML INJ ONE (07:22)
[2018-06-05] MEDS ORDERED: LIDOCAINE 1% 300 MG/30 ML SDV ONE (07:22)
[2018-06-05] MEDS ORDERED: BUPIVACAINE 0.25% 30 ML SDV ONE (07:22)
[2018-06-05] MEDS ORDERED: ceFAZolin 2 GM/DEXTROSE 100 ML IV ONE (07:24)
[2018-06-05] MEDS ORDERED: ACETAMINOPHEN 500 MG TAB PO ONE (07:24)
[2018-06-05] MEDS ORDERED: LR 1,000 ML IV ONE (07:25)
--- NOTE | 2018-06-05 08:55 | PDANEPAE ---
ANE History of Present Illness Essential tremor ANE Past Medical History - Cardiovascular History Hx Hypertension: No Hx Arrhythmias: No Hx Chest Pain: No Hx Coronary Artery / Peripheral Vascular Disease: No Hx CHF / Valvular Disease: No Hx Palpitations: No Cardiovascular History Comment: Chest pains about 9 years ago. Went to ER in [facility] and was determined to be stress. - Pulmonary History Hx COPD: No Hx Asthma/Reactive Airway Disease: No Hx Recent Upper Respiratory Infection: No Hx Oxygen in Use at Home: No Hx Sleep Apnea: No Sleep Apnea Screening Result - Last Documented: Negative Pulmonary History Comment: Reports lung infection in December 2017 "from all the smoke in the air". Saw PCP and started on course of Augmentin and a PRN MDI. - Neurologic History Hx Cerebrovascular Accident: No Hx Seizures: No Hx Dementia: No Neurologic History Comment: essential tremor - Endocrine History Hx Diabetes: No - Renal History Hx Renal Disorders: No - Liver History Hx Hepatic Disorders: No - Neurological & Psychiatric Hx Hx Neurological and Psychiatric Disorders: No - Cancer History Hx Cancer: No - Congenital Disorder History Hx Congenital Disorders: No - GI History Hx Gastrointestinal Disorders: No - Other Health History Other Health History: glasses for reading - Chronic Pain History Chronic Pain: No - Surgical History Prior Surgeries: 05/17/18 right side DBS lead placement with Garcia. 04/24/18 left side DBS lead placement with Garcia. Tonsillectomy (8 years old). Cyst removal from neck-2017 ANE Review of Systems Review of Systems: - Exercise capacity METS (RN): 4 METS ANE Patient History - Allergies Allergies/Adverse Reactions: No Known Allergies Allergy (Verified 05/23/18 11:03) - Home Medications Home medications: home medication list seen and reviewed Home Medications: Albuterol [Proventil Inhaler HFA (*)] 1 - 2 puffs IH DAILY PRN 03/19/18 [Last Taken 3 Weeks Ago ~04/26/18] Primidone [Primidone 250mg (*)] 125 mg PO HS 03/19/18 [Last Taken 06/03/18] Hydrocodone/APAP 5/325 [[place] 5/325 (*)] 1 - 2 tab PO Q6 PRN 05/17/18 [Last Taken 06/03/18] - NPO status NPO Since - Liquids (Date): 06/04/18 NPO Since - Solids (Date): 06/04/18 NPO Since - Solids (Time): 14:00 - Anes Hx Anes Hx: no prior problems - Smoking Hx Smoking Status: Heavy smoker (Smoked this AM) - Family Anes Hx Family Hx Anesthesia Complications: None ANE Labs/Vital Signs - Vital Signs Blood Pressure: 138/95 Heart Rate: 89 Respiratory Rate: 14 O2 Sat (%): 96 Height: 180.34 cm Weight: 72.575 kg ANE Physical Exam - Airway Neck exam: FROM Mallampati Score: Class 2 Mouth exam: poor dentition - Pulmonary Pulmonary: no respiratory distress - Cardiovascular Cardiovascular: regular rate and rhythym - ASA Status ASA Status: II ANE Anesthesia Plan Anesthesia Plan: general endotracheal anesthesia
[2018-06-05] MEDS ORDERED: MIDAZOLAM 2 MG/2 ML VIAL IVP ONE (09:25)
[2018-06-05] MEDS ORDERED: ROCURONIUM 50 MG/5 ML VIAL ONE (09:30)
[2018-06-05] MEDS ORDERED: GLYCOPYRROLATE 0.2 MG/1 ML VIAL ONE (09:31)
[2018-06-05] MEDS ORDERED: fentaNYL 100 MCG/2 ML INJ ONE ×3 (09:31→11:45)
[2018-06-05] MEDS ORDERED: PROPOFOL 200 MG/20 ML VIAL ONE (09:32)
[2018-06-05] MEDS ORDERED: GENTAMICIN SULFATE 80 MG/2 ML VIAL ONE (09:35)
[2018-06-05] MEDS ORDERED: LABETALOL HCL 5 MG/ML 20 ML MDV ONE (10:01)
[2018-06-05] MEDS ORDERED: NALOXONE HCL 0.4 MG/ML INJ IVP PRN (10:35)
[2018-06-05] MEDS ORDERED: HYDROmorphONE/DILAUDID 2 MG/ML INJ IVP PRN (10:35)
[2018-06-05] MEDS ORDERED: ONDANSETRON 4 MG/2 ML VIAL IVP PRN (10:35)
[2018-06-05] MEDS ORDERED: DEXAMETHASONE 4 MG/ML VIAL ONE (10:41)
[2018-06-05] MEDS ORDERED: ONDANSETRON 4 MG/2 ML VIAL ONE (10:41)
[2018-06-05] MEDS ORDERED: SUGAMMADEX SODIUM 200 MG/2 ML VIAL IVP ONE (11:23)
[2018-06-05] MEDS ORDERED: HYDROCODONE/APAP 5/325 TAB PO PRN (11:34)
--- NOTE | 2018-06-05 11:37 | POSTOPPROG ---
Post Op Note Date of Operation: 06/05/18 Surgeon: Tejal Garcia Crew Person: Shirley Stephens Anesthesia: GET(General Endotracheal) Pre-op Diagnosis: Essential tremor Post-op Diagnosis: Essential tremor Procedure: Bilateral DBS generator placement Inf/Abcess present in the surg proc area at time of surgery?: No Depth: Superfical (Skin SQ) EBL: 50-100 Plan Plan: 52 yo male s/p bilateral DBS generator implant - pain control - advance diet as tolerated - dc home Exam Awake. Alert Following commands Incisions with dressings
--- NOTE | 2018-06-05 11:38 | POSTANESTH ---
Post Anesthetic Evaluation Cardiovascular Status: Similar to Pre-Op Cond Respiratory Status: Similar to Pre-op Cond. Level of Consciousness/Mental Status: Alert and Oriented Pain Control: Adequate, Prn Tx Ordered Nausea/Vomiting Control: Adequate, Prn Tx Ordered Complications Possibly Related to Anesthesia: None Noted
[2018-06-05] MEDS: fentaNYL 100 MCG/2 ML INJ IVP PRN ×2 (11:46→11:52)
--- NOTE | 2018-06-05 11:49 | GOP ---
DATE OF OPERATION: 06/05/2018 SURGEON: Tejal Garcia DO NEUROSURGEON: Tejal Garcia D.O. FRAME SAMPLE AND PATTERN SUPERVISOR: Shirley Stephens PA-C PREOPERATIVE DIAGNOSIS: Essential tremor. POSTOPERATIVE DIAGNOSIS: Essential tremor. PROCEDURE PERFORMED: 1. Placement of bilateral deep brain stimulator, internal pulse generators with Land [employer] Infi nity generators bilaterally. 2. Impedances bilaterally. FINDINGS: SPECIMENS: None. ESTIMATED BLOOD LOSS: 75 mL. INDICATIONS: This is a 52-year-old male with bilateral deep brain stimulation to VIM nucleus who ret urns for generator placement. DESCRIPTION OF PROCEDURE: He was identified, consented. Sites were marked. Brought to the operatin g room, anesthetized under general endotracheal tube anesthesia. Hair was clipped with the OR clippe rs. Incision sites were marked on the right. He was prepped and draped in the usual sterile fashion . Incision at the chest wall was anesthetized with 0.25% Marcaine with epinephrine. Incision was made with a 10 blade and then, a pocket was made with Metzenbaum scissors and blunt dissection. We made i ncision just lateral to lead extension cap at the head and dissected out with Metzenbaum, tunneled fr om the head to the chest in a single pass, bringing the lead extension down, discarding the straw, re moving the lead extension cap with the torque wrench protecting the contact, placed it and gently dri ed the lead, placed into the extension, locked it down, placed into the generator, locked it down. C hecked impedances. All impedances were good. Coiled the wire posterior to the generator, sutured it to the chest wall with 2-0 silk stitch at 2 positions. Copiously irrigated each incision with over a liter of gentamicin-infused saline. Closed the galea of the skull with a 2-0 Vicryl pop-off and th e skin with 3-0 running nylon at the chest, closed subcutaneous layer with 2-0 Vicryl pop-offs, cutan eous layer with 3-0 Vicryl pop-offs. This skin was closed with a 4-0 running Monocryl and head incis ion was dressed with Xeroform and Medipore tape. The chest was dressed with gauze and a Tegaderm. We undraped, re-prepped and draped, and performed the exact same procedure on the opposite side. All impedances were good. There were no deviations from the previously dictated procedure. We anesthet ized the chest wall incision with 0.25% Marcaine with epinephrine. Created a pocket with Metzenbaum scissors and blunt dissection. Dissected just lateral to lead extension complex, brought the lead ex tension complex up and out, removing the cap with a torque wrench. We tunneled down to the chest wal l in a single pass, bringing the extension down and out, gently dried the lead placed into the extens ion, locked it into place protecting the contact. Placed it into the generator, locked it into place , protecting the contact. Checked impedances. All impedances were good. Coiled the wire posterior to the generator, sutured it to the chest wall with 2 silk stitch at 2 positions. Copiously irrigate d each incision with over a liter of gentamicin-infused saline. At the head, closed the galea with 2 -0 Vicryl pop-offs, the skin with 3-0 running nylon at the chest wall, subcutaneous layer with 2-0 Vi cryl pop-offs, cutaneous layer with 3-0 Vicryl pop-offs. The skin was closed with 4-0 running Monocr yl and the head wound was dressed with Xeroform gauze and a Medipore. Patient's chest was dressed wi th gauze and Tegaderm. Patient tolerated procedure well. No complications. FLUIDS: 900 mL crystalloid. URINE OUTPUT: None. DRAINS: None. COMPLICATIONS: None. /[id number]/MODL
[2018-06-05] MEDS ORDERED: HYDROCODONE/APAP 5/325 TAB ONE (12:08)
[2018-06-05] MEDS ORDERED: hydrALAZINE 20 MG/ML VIAL ONE (12:17)
[2018-06-05] MEDS ORDERED: hydrALAZINE 20 MG/ML VIAL IVP ONE (12:30)
[2018-06-05 12:57] VITALS: BP 130/87
== END 2018-06-05 13:14 | disposition home or self-care (01) ==
LOC: FSGY 07:16 → EDSTATUS 09:45 → FSGY 13:14 → EDSTATUS 06-07 07:15
PROVIDERS: ATTEND Neurological Surgery
PROC: 0JH60BZ Insertion of Single Array Stimulator Generator into Chest Subcutaneous Tissue and Fascia, Open Approach (ICD-10-PCS; 2018-06-05)
PROC: 0JH60BZ Insertion of Single Array Stimulator Generator into Chest Subcutaneous Tissue and Fascia, Open Approach (ICD-10-PCS; principal; 2018-06-05 09:45)
DX: G25.0 Essential tremor (principal); F17.200 Nicotine dependence, unspecified, uncomplicated
CPT/HCPCS: C1767; C1787; C1883; J0171; J0360; J0690; J1100; J1580; J2250; J2405; J2704; J3010